=== PATIENT | female | born 1950 | race Caucasian/White ===

== ENCOUNTER 2023-11-14 23:02 | Emergency (ER) | payer BC, MEDICARE ==
[2023-11-15] MEDS: Ondansetron 4 MG Tab.DIS PO ONE (00:49)
[2023-11-15 01:03] LABS: BASOPHILS PERCENT AUTO 0.4 % (0.1-1.3); HEMOGLOBIN 13.3 g/dL (11.2-15.5); IMMATURE GRAN PERCENT AUTO 0.2 % (0.0-0.7); LYMPHOCYTES ABSOLUTE AUTO 0.35 K/uL (0.8-3.3); LYMPHOCYTES PERCENT AUTO 7.2 % (11.4-47.7); MEAN CORPUSCULAR HEMOGLOBIN 33.4 pg (31.6-35.5); MEAN CORPUSCULAR HGB CONC 35.9 g/dL (31.6-35.5); MONOCYTES ABSOLUTE AUTO 0.11 K/uL (0.20-0.90); MONOCYTES PERCENT AUTO 2.3 % (3.3-12.6); NEUTROPHILS ABSOLUTE AUTO 4.38 K/uL (1.0-7.6); NEUTROPHILS PERCENT AUTO 89.9 % (40.0-78.1); PLATELET COUNT,PLT 148 K/uL (130-375); RED BLOOD CELL COUNT 3.98 M/uL (3.77-5.24); WHITE BLOOD CELL COUNT,WBC 4.9 K/uL (3.2-11.0)
[2023-11-15 01:34] LABS: A/G RATIO 0.9 (1.2-2.2); ALANINE AMINOTRANSFERASE,ALT 34 U/L (12-78); ALBUMIN 3.4 g/dL (3.4-5.0); ALKALINE PHOSPHATASE 82 U/L (46-116); ASPARTATE AMNIOTRANSFERASE,AST 38 U/L (15-37); BILIRUBIN TOTAL 0.5 mg/dL (0.2-1.0); BLOOD UREA NITROGEN,BUN 19 mg/dL (7-18); C-REACTIVE PROTEIN 12.63 mg/dL (<0.50); CALCIUM 8.5 mg/dL (8.5-10.1); CARBON DIOXIDE,CO2 26 mmol/L (21-32); CHLORIDE,CL 99 mmol/L (100-108); CREATININE 1.3 mg/dL (0.6-1.0); EST CRCL DRUG DOSING (CG) 30.48 mL/min; ESTIMATED GFR 43 mL/min (>60); GLUCOSE RANDOM 103 mg/dL (74-106); POTASSIUM,K 3.5 mmol/L (3.6-5.2); SODIUM,NA 134 mmol/L (140-148); TROPONIN I HIGH SENSITIVITY 6.8 pg/mL (<=60.3)
[2023-11-15 01:36] LABS: ANION GAP 12.5 mmol/L (5.0-14.0); BASOPHILS ABSOLUTE AUTO 0.02 K/uL (0.00-0.10); IMMATURE GRAN ABSOLUTE AUTO 0.01 K/uL (0.00-0.23)
== END 2023-11-15 01:53 | disposition home or self-care (01) ==
LOC: JP.ED 23:02
DX: R53.83 Other fatigue (principal); Z86.16 Personal history of COVID-19; Z79.899 Other long term (current) drug therapy
CPT/HCPCS: 36415; 80053; 83605; 84484; 85025; 86140; 99283; 99284; Q0162; U0002